=== PATIENT | male | born 1965 | race Two or more races ===

== ENCOUNTER 2024-11-04 15:12 | Emergency (ER) | payer OTHER, SELFPAY ==
[2024-11-04 15:14] VITALS: BMI 33.5
[2024-11-04 15:31] VITALS: BP 157/98; PULSE 90; RESP 20; TEMP 36.9; O2SAT 97
--- NOTE | 2024-11-04 15:33 | XR_ITS ---
Examination: CT abdomen and pelvis without contrast. Coronal 3-D reconstructions. Sagittal 2-D reconstructions. Date and time of exam:November 04, 2024 1614 hours INDICATIONS: Right upper abdominal pain and flank pain today CTDI: vol (mGy): 9.28 DLP: (mGycm): 583 Technique: Axial images of the abdomen have been obtained, 3 mm slice thickness Intravenous contrast material has not been administered. Low dose protocols were performed. One or more of the following dose reduction techniques were used; automated exposure control, adjustment of the mA and/or KV according to patient size, use of iterative reconstruction technique. Findings: 32 mm bilobed pulmonary mass with possible cavitation in the lingular segment left upper lobe Diffuse fatty infiltration throughout the liver No gallstones Gallbladder wall appears mildly thickened No splenic or pancreatic mass No renal or ureteral calculi, no hydronephrosis Aorta normal size 18 mm fat-containing umbilical hernia Normal appendix No diverticulitis Contracted urinary bladder AP prostate dimension 4.6 cm Moderate osteopenia IMPRESSION: 32 mm bilateral pulmonary mass in the lingular segment left upper lobe, recommend CT chest without contrast follow-up Recommend hepatobiliary sonography follow-up to assess the gallbladder wall No renal or ureteral calculi, no hydronephrosis Normal appendix
--- NOTE | 2024-11-04 15:34 | EDRME_ITS ---
Rapid Medical Screening Exam [facility] [place] Arrival date/time: 11/04/24 15:12 59-year-old male with no known medical history presents to the emergency room with a chief complaint of right lower quadrant and right upper quadrant abdominal pain and tenderness x 4 days. He also has a erythemic papular rash to his back that is consistent with shingles. I have greeted and performed a focused initial assessment of this patient. A comprehensive ED assessment and evaluation of the patient, analysis of all test results, and completion of the medical decision making process will be conducted by additional ED providers. Chief Complaint: Abdominal Pain Vital signs: Vital Signs Temperature 98.4 F 11/04/24 15:31 Pulse Rate 90 11/04/24 15:31 Respiratory Rate 20 11/04/24 15:31 Blood Pressure 157/98 H 11/04/24 15:31 Pulse Oximetry (%) 97 11/04/24 15:31 Oxygen Delivery Method Room Air 11/04/24 15:31 Vital signs reviewed by provider: Yes
[2024-11-04 16:23] LABS: Collection Type, Urine Clean Catch; Squamous Epithelial Cell,Urine 0 /hpf (0-5)
[2024-11-04 16:30] LABS: Basophils % (Auto) 0 % (0-2.5); Eosinophils # (Auto) 0.1 Thou/mm3 (0.0-0.5); Eosinophils % (Auto) 1 % (0-10); Hematocrit 48.1 % (41.0-53.0); Hemoglobin 16.6 g/dL (13.5-16.0); Immature Granulocytes % (Auto) 0 % (0-0); Immature Granulocytes Auto 0.02 Thou/mm3 (0.00-0.00); Lymphocytes # (Auto) 2.3 Thou/mm3 (1.0-4.8); Lymphocytes % (Auto) 28 % (10-50); Mean Corpuscular HGB Conc 34.5 g/dl (31.0-37.0); Mean Corpuscular Hemoglobin 28.2 pg (25.0-35.0); Mean Corpuscular Volume 82 fL (80-100); Monocytes # (Auto) 0.6 Thou/mm3 (0.0-0.8); Monocytes % (Auto) 7 % (0-12); Neutrophils # (Auto) 5.2 Thou/mm3 (1.8-7.7); Neutrophils % (Auto) 64 % (37-80); Nucleated Red Blood Cell % 0 /100 WBC (0); Platelet Count 172 Thou/mm3 (140-440); RDW Standard Deviation 37.8 fL (35.1-43.9); Red Blood Count 5.88 Miln/mm3 (4.50-5.90); White Blood Count 8.1 Thou/mm3 (3.8-10.6)
[2024-11-04 16:35] LABS: Bilirubin,Urine Negative (Negative); Blood,Urine Negative (Negative); Clarity,Urine Clear (Clear/Hazy); Color,Urine Yellow (Lt Yel-Yel); Glucose, Urine 1+ (Negative); Ketones,Urine Negative (Negative); Leukocyte Esterase,Urine Negative (Negative); Nitrite,Urine Negative (Negative); PH,Urine 5.5 (5.0-7.0); Protein,Urine 1+ (Neg - Trace); RBC,Urine 1 /hpf (0-3); Specific Gravity,Urine 1.024 (1.001-1.035); Urobilinogen,Urine Negative mg/dL (0.0-1.0); WBC,Urine 1 /hpf (0-5)
[2024-11-04 16:50] LABS: Alanine Aminotransferase 55 U/L (10-49); Albumin, Serum 4.8 gm/dL (3.5-5.0); Albumin/Globulin Ratio 2.3 (1.2-2.2); Alkaline Phosphatase 64 U/L (46-116); Anion Gap 11 (7-16); Aspartate Amino Transferase 35 U/L (0-34); BUN/Creatinine Ratio 11 Ratio (12-20); Bilirubin,Total 1.1 mg/dL (0.3-1.2); Blood Urea Nitrogen 12 mg/dL (9-23); Calcium 9.4 mg/dL (8.3-10.6); Calcium (Corrected) 9.4 mg/dL (8.5-10.1); Carbon Dioxide 24.3 mMol/L (20.0-31.0); Chloride 104 mMol/L (98-107); Creatinine (Component) 1.1 mg/dL (0.6-1.3); Estimated Creatinine Clearance 73.4 mL/min (>60); Globulin 2.1 gm/dL (2.3-3.5); Glucose 229 mg/dL (74-106); Lipase 30 U/L (12-53); Osmolality,Calculated 284 (275-295); Potassium 4.2 mMol/L (3.4-5.1); Sodium 139 mMol/L (136-145); Total Protein 6.9 gm/dL (5.7-8.2); eGFR > 60 See Note
[2024-11-04] MEDS: HYDROcodone/APAP 5/325 TABLET 1 TAB PO (17:43)
[2024-11-04] MEDS: ONDANSETRON ODT 4 MG TABRAP PO (17:44)
--- NOTE | 2024-11-04 18:13 | PD.EDABDPN ---
ED Abdominal Pain RME/HPI General Chief Complaint: Abdominal Pain Stated complaint: ABD PAIN ON/OFF x 6 DAYS, SEEN IN [place] FRIDAY Time seen by provider: 11/04/24 18:03 Arrival date/time: 11/04/24 15:12 RME / HPI RME / HPI narrative: 59-year-old male with no known medical history presents to the emergency room with a chief complaint of right lower quadrant and right upper quadrant abdominal pain and tenderness x 4 days. He also has a erythemic papular rash to his back that is consistent with shingles. Patient noticed the rash today. Related Data Previous Rx's ?Medication ?Instructions ?Recorded ibuprofen 800 mg tablet 800 mg PO Q8H PRN pain #30 tabs 11/04/24 valacyclovir 1 gram tablet 1,000 mg PO TID #30 tabs 11/04/24 (Valtrex) Allergies Allergy/AdvReac Type Severity Reaction Status Date / Time No Known Allergies Allergy Verified 11/04/24 15:16 Review of Systems Review of Systems Narrative Review of Systems: Review of system reviewed and within normal limits except mentioned in HPI ED Exam Narrative Physical exam: VITAL SIGNS: Reviewed. GENERAL APPEARANCE: Alert and interactive, follows commands, no acute distress, HEAD AND FACE: Non-traumatic. ENT: PERRL, pink conjunctivitis, eyelid no trauma, Mucous membrane moist. NECK: Supple, nontender, no nuchal rigidity. CHEST: No tenderness, no crepitus, no paradoxical movement, no retractions. LUNGS: Clear, well ventilated, symmetric, no rales, no wheezing, no ronchi, no stridor, good breath sounds bilaterally. HEART: Regular rate, regular rhythm, no murmur, no gallops. ABDOMEN: Soft, positive bowel sounds, nondistended, no guarding, nontender, no rebound, no masses, RECTAL: Deferred. GENITAL: Deferred. NEUROLOGICAL: Gross motor function intact sensory function intact, Appropriate for age. MUSCULOSKELETAL: low back nontender, full range of motion. EXTREMITIES: Nontender, full range of motion. SKIN: Color pink, dry, no rash, no lacerations, no abrasions, no contusions. LYMPHATICS: Deferred. Course Quality Measures none Orders Category Date Time Status CT abdomen pelvis wo con Stat Exams 11/04/24 15:33 Completed US gall bladder Stat Exams 11/04/24 17:36 Stop Req CBC Stat Lab 11/04/24 16:11 Completed CMP [Comprehensive Metabolic Panel] Stat Lab 11/04/24 16:11 Completed Lipase Stat Lab 11/04/24 16:11 Completed UA [Urinalysis] Stat Lab 11/04/24 16:15 Completed Urine Culture Stat Lab 11/04/24 16:15 Received HYDROcodone*/APAP 5/325 [[place] 5/325] Med 11/04/24 15:33 Discontinued 1 tab PO X1 ONE Ondansetron Odt [Zofran Odt] Med 11/04/24 15:33 Discontinued 4 mg PO X1 ONE valACYclovir [Valtrex] Med 11/04/24 18:13 Discontinued 1,000 mg PO X1 ONE Vital Signs Vital signs: Vital Signs Temperature 98.4 F 11/04/24 15:31 Pulse Rate 90 11/04/24 15:31 Respiratory Rate 20 11/04/24 15:31 Blood Pressure 157/98 H 11/04/24 15:31 Pulse Oximetry (%) 97 11/04/24 15:31 Oxygen Delivery Method Room Air 11/04/24 15:31 Abdominal Pain MDM MDM Narrative MDM Narrative:: 59-year-old male with no known medical history presents to the emergency room with a chief complaint of right lower quadrant and right upper quadrant abdominal pain and tenderness x 4 days. He also has a erythemic papular rash to his back that is consistent with shingles. Patient noticed the rash today. Patient's workup all came back unremarkable. Urinalysis no UTI. CT scan of the abdomen pelvis showed 32 mm bilateral pulmonary mass in the lingular segment left upper lobe, recommend CT chest without contrast follow-up Recommend hepatobiliary sonography follow-up to assess the gallbladder wall No renal or ureteral calculi, no hydronephrosis Normal appendix Spoke with Dr. Garcia, patient's family friend , and told me that patient is okay to be discharged home. Follow-up in the clinic Patient data External records reviewed:: None Clinical information provided by:: patient Social determinants that could affect healthcare access:: none Patient has the following chronic illnesses:: None How is presenting disease/condition affected by chronic disease/condition?: exacerbated by Evaluation data The following diagnostics were reviewed and interpreted by me:: lab results and radiology exam(s) Lab and/or radiology exams considered but not ordered:: None Interpretation Summary: see results MDM Medications / Prescriptions Medications or Prescriptions considered but not ordered:: None Medication administrations:: Medication Administration History Discontinued Medications Hydrocodone Bitart/Acetaminophen (Hydrocodone/[place] 5/325 Tablet) 1 tab PO X1 ONE Stop: 11/04/24 15:34 Last Admin: 11/04/24 17:43 Dose: 1 tab Documented By: Ondansetron HCl (Ondansetron Odt 4 Mg Tabrap) 4 mg PO X1 ONE; Protocol Stop: 11/04/24 15:34 Last Admin: 11/04/24 17:44 Dose: 4 mg Documented By: Valacyclovir HCl (Valacyclovir 500 Mg Tablet (Non-Formulary)) 1,000 mg PO X1 ONE Stop: 11/04/24 18:14 Valtrex Jacqueline Boateng Consultations Consultation(s) initiated? (list below): No Diagnosis Differential diagnosis abdominal pain: abdominal pain and other (Shingles, renal colic) Most likely diagnosis given after review of the tests above:: Shingles Admission Indicated Admission indicated?: not indicated Admission Request Was there a request for admission?: No Disposition Plan Disposition Plan: Discharge Discharge Attestation Discharge Attestation: The patient and all family members were given an opportunity to ask questions and understood the discharge instructions. Discharge instructions specifically effects, indications for sooner follow up or return to the emergency department, and the expected course of current diagnosis. Patient condition: Stable Discharge Plan Plan Patient Disposition: HOME (Self Care) Discharge Disposition comment: Stable Prescriptions/Referrals Prescriptions/Med Rec: New valacyclovir [Valtrex] 1 gram tablet 1,000 mg PO TID Qty: 30 0RF ibuprofen 800 mg tablet 800 mg PO Q8H PRN (Reason: pain) Qty: 30 0RF Referrals: Kayode (PCP)Spencer MD [Primary Care Provider] - In 1 week Problem List Clinical Impression: Abdominal pain, Shingles Patient/Caregiver Discharge Instructions Discharge Activity: activity as tolerated Education Materials: Shingles (Herpes Zoster) Additional Instructions: Thank you for the opportunity for serving you today. You are stable for discharged . You are advised to: Follow-up with your PCP in 1 to 2 days Return to ED for worsening of symptoms Increase oral fluids Take medication as prescribed Print Language: Arabic Stand Alone Forms: [facility]y Award Info., Patient Portal Info Letter
[2024-11-04] MEDS: ACYCLOVIR 800 MG TABLET PO (18:33)
== END 2024-11-04 18:51 | disposition home or self-care (01) ==
PROVIDERS: Nurse Practitioner Family; Emergency Provider Emergency Medicine; PCP Family Medicine
DX: R10.11 Right upper quadrant pain (principal); B02.9 Zoster without complications; R10.31 Right lower quadrant pain
CPT/HCPCS: 36415; 74176; 80053; 81001; 83690; 85025; 87086; 99284; Q0162; A9270